=== PATIENT | female | born 1965 | race Caucasian/White ===

== ENCOUNTER 2023-12-03 04:16 | Emergency (ER) | payer SELFPAY ==
[~2023-12-03] VITALS: Ht 152.4 cm; Wt 62.0 kg
[2023-12-03 04:26] VITALS: O2SAT 100
[2023-12-03 05:28] LABS: BASOPHILS % 0.4 % (0.0-2.0); EOSINOPHILS % 2.2 % (0.0-5.0); HEMATOCRIT. 37.3 % (36.0-48.0); HEMOGLOBIN. 12.6 g/dL (12.0-16.0); LYMPHOCYTES % 36.9 % (20.0-50.0); MEAN CORPUSCULAR HEMOGLOBIN 31.1 pg (28.0-32.0); MEAN CORPUSCULAR HGB CONC 33.8 g/dL (31.0-37.0); MEAN CORPUSCULAR VOLUME 91.8 fL (81.0-99.0); MEAN PLATELET VOLUME 9.3 fl (7.4-10.4); MONOCYTES % 8.5 % (2.0-8.0); PLATELET 281 x1000/uL (130-400); RED BLOOD CELL COUNT 4.06 mill/uL (4.2-5.4); RED CELL DISTRIBUTION WIDTH 13.6 % (11.6-14.6); WHITE BLOOD COUNT 7.1 x1000/uL (4.5-11.0)
[2023-12-03 05:59] LABS: ALANINE AMINOTRANSFERASE 29 IU/L (10-49); ASPARTATE AMINOTRANSFERASE 26 IU/L (<34); BILIRUBIN TOTAL 0.2 mg/dL (0.1-1.0); CALCIUM 8.6 mg/dL (8.7-10.4); CARBON DIOXIDE 23 mEq/L (21-32); CHLORIDE 106 mEq/L (98-107); CREATININE 0.7 mg/dL (0.6-1.0); GLUCOSE 109 mg/dL (70-105); POTASSIUM 3.9 mEq/L (3.5-5.1); PROTEIN TOTAL 6.9 g/dL (6.0-8.3); SODIUM 138 mEq/L (136-145); UREA NITROGEN BLOOD 14 mg/dL (9-23)
[2023-12-03 06:06] LABS: TROPONIN I HIGH SENSITIVITY < 4 ng/L (3.0-34)
[2023-12-03 06:44] VITALS: BP 134/81; PULSE 83; RESP 20; TEMP 98.8
[2023-12-03 07:46] LABS: ALBUMIN 4.2 g/dL (3.2-4.8)
== END 2023-12-03 07:15 | disposition home or self-care (01) ==
LOC: ER 04:16
DX: R06.02 Shortness of breath (principal); E11.9 Type 2 diabetes mellitus without complications; Z90.49 Acquired absence of other specified parts of digestive tract; Z90.710 Acquired absence of both cervix and uterus
CPT/HCPCS: 36415; 71045; 80053; 82962; 84484; 85025; 93005; 99285